=== PATIENT | female | born 1995 | race Caucasian/White ===

== ENCOUNTER 2018-03-16 18:30 | Emergency (ER) | payer OTHER, SELFPAY ==
[2018-03-16 18:32] VITALS: BP 131/96; PULSE 92; RESP 17; TEMP 36.5; O2SAT 100; BMI 28.0
--- NOTE | 2018-03-16 18:49 | ED.VISSUMM ---
- ER Visit Summary Date of Service: 03/16/18 Chief Complaint: Abdominal pain and flank pain History of Present Illness: The patient is a 22 F presenting for evaluation secondary to abdominal pain and flank pain. Patient reports that over the course last 5 days she has been dealing with right upper quadrant and right flank pain. She states it came on gradually, and now is a continuous sharp pain that is worse with movement palpation or taking a deep breath. Patient states that it has been associated with one episode of nonbloody nonbilious emesis today. She Nuys any dysuria frequency urgency. She denies any diarrhea. Last normal menstrual cycle ended 5 days ago. Patient denies any history of abdominal surgeries. She denies any vaginal discharge. She denies any prior similar episodes in the past. Physical Examination: Vital signs are within normal limits, patient is afebrile. General: Patient is well-nourished well-developed and in no acute distress. Head: Normocephalic, atraumatic Eyes: Pupils equal round and reactive bilaterally, extra occular motion intact bialterally ENT: Moist mucous membranes Neck: Supple, no lymphadenopathy, no JVD, no meningismus CVS: Heart regular rate and rhythm, no murmurs, rubs or gallops, radial pulses 2+ bilaterally Resp: Respirations nondistressed, lung sounds clear bilaterally Abdomen: Soft, right upper quadrant and right flank tenderness to palpation, nondistended, no palpable masses, normal bowel sounds Back: Nontender Extremities: Nontender, atraumatic, active full range of motion, no peripheral edema Skin: warm, no rashes, no petechia Neuro: Alert and oriented x 4, CN 2-12 intact, no lateralizing neurological defecits Psyc: Normal affect Test Results: Urinalysis shows 5-15 RBCs. CBC chemistry liver and hCG panels are unremarkable. Right upper quadrant ultrasound shows no hydronephrosis of the right kidney with a normal gallbladder. Rib series shows a right anterior rib fracture of the ninth rib Emergency Department Course and Treatment: Patient presented for evaluation secondary to flank pain and abdominal pain. Broad workup was obtained as the locale of the patient's pain length to a broad differential. Workup ended up showing the patient to have 9 rib fracture. Patient's pain was addressed in the emergency department with morphine Zofran Toradol and a lidocaine patch. She had minimal improvement from this. At this point I believe the patient to be appropriate for discharge. She will be sent home with light duty for work, and follow-up with primary care. Disposition: Discharge Impression: 1. Right anterior ninth rib fracture This note was generated with [employer] dictation software. It may contain incorrect words, spelling, and punctuation that were not noted in review of the chart prior to signing ED Disposition - Plan for ED Patient: Disposition: Home or Assisted Living Chief Complaint: Abd Pain Diagnosis: Rib fracture Instructions: ED Fx Rib Prescriptions: Oxycodone HCl/Acetaminophen [Percocet 5/325] 1 tab PO Q6H PRN PRN 5 Days #20 tab PRN Reason: Pain Lidocaine [Lidoderm] 1 ea TP DAILY #10 adh..patch Referrals: Miguel Sharif MD [STAFF PHYSICIAN] - As soon as possible
--- NOTE | 2018-03-16 18:51 | US_ITS ---
STUDY: ABDOMINAL ULTRASOUND - RIGHT UPPER QUADRANT REASON FOR VISIT: Female, 22 years old. Pain. Recent injury. TECHNIQUE: Ultrasound evaluation of the right upper quadrant was performed with real-time and static geronimo-scale imaging. TECHNICAL QUALITY: Adequate. COMPARISON: None. FINDINGS: Liver: The liver measures 18.4 cm. There is normal echogenicity of the liver. The bile ducts are within normal limits. There is hepatic color flow. The direction of portal flow is hepatopetal. There is no demonstrated mass lesion. Gallbladder: Normal distended gallbladder. The gallbladder wall measures 2 mm. There is a negative sonographic Zambrano's sign. There is no pericholecystic fluid. There are no gallstones. Common Bile Duct (C.B.D.): The common bile duct measures 3 mm. Pancreas: Normal size of the head, body and tail of the pancreas. There is normal echogenicity of the pancreas. There is no demonstrated pancreatic mass or cyst. Right Kidney: Normal size of the right kidney. The right kidney measures 9.7 cm. Normal renal cortex. There is no demonstrated renal mass or cyst. There is no right hydronephrosis. US/Gallbladder IMPRESSION: Normal right upper quadrant ultrasound examination. Electronically Signed: Alex Villa MD at 21:12 EST , Service support ,
[2018-03-16 19:27] LABS: ALB/GLOB Ratio 1.1 RATIO (0.9-2.4); AST(SGOT) 9 U/L (15-37); Alanine Aminotransfer ALT/SGPT 14 U/L (13-56); Albumin, Serum 3.7 g/dL (3.2-5.0); Alkaline Phosphatase 36 U/L (45-117); Anion Gap 9 (5-15); BUN 9 mg/dL (7-18); BUN/Creat Ratio 11.2 RATIO (10-20); Calcium,Total 8.5 mg/dL (8.5-10.1); Chloride 107 mmol/L (98-107); EST Glomerular Filtration Rate 96 mL/min (>60); Est Glom Filt Rate - Afr Amer 116 mL/min (>60); Estimated Creatinine Clearance 92.79 ml/min; Globulin 3.3 g/dL (2.2-4.2); Glucose 87 mg/dL (74-106); Lipase 78 U/L (73-393); Potassium 3.8 mmol/L (3.5-5.1); Sodium Level 142 mmol/L (136-145)
[2018-03-16 19:29] LABS: Absolute Lymphocyte Count 1.94 X10^3/ul (0.83-4.51); Absolute Neutrophil Count 5.8 X10^3/uL (2.0-7.7); Basophil# 0.02 X10^3/uL; Basophil% 0.2 % (0-1); Eosinophil# 0.12 X10^3/uL; Eosinophils% 1.4 % (0-5); Hematocrit 39.4 % (37-47); Hemoglobin 13.6 g/dl (12.0-15.0); Lymphocyte # 1.94 X10^3/ul (4.0); Lymphocyte % 21.9 % (19-41); Mean Corp Hgb Conc 34.5 g/gl (32-36); Mean Corpuscular Hgb 30.2 pg (27.0-32.0); Mean Corpuscular Volume 87.4 fL (81-99); Mean Platelet Vol. 9.5 fl (6.2-12.0); Monocyte# 1.02 X10^3/uL; Monocyte% 11.5 % (0-10); Neutrophil # 5.77 X10^3/uL (2.7-7.7); Platelet Count 331 K/mm3 (150-450); RBC Distribution Width CV 12.3 % (11.6-14.6); RBC Distribution Width SD 39.4 fl (35.1-43.9); Red Blood Count 4.51 M/mm3 (4.2-5.4); White Blood Count 8.9 K/mm3 (4.4-11.0)
[2018-03-16] MEDS: Ondansetron 4 MG/2 ML Vial IV (19:32)
[2018-03-16] MEDS: Morphine 2 MG/ML Syringe IV (19:32)
[2018-03-16] MEDS: Lidocaine 5% Patch 1 PATCH TOPICAL (19:33)
[2018-03-16 19:36] LABS: POSITIVE COUNT NO; POSITIVE DIFFERENTIAL NO; POSITIVE MORPHOLOGY NO
--- NOTE | 2018-03-16 19:40 | RAD_ITS ---
STUDY: X-RAY - UNILATERAL RIBS ( RIGHT ) WITH CHEST REASON FOR EXAM: Female, 22 years old. Right-sided rib pain. TECHNIQUE - RIBS: 3 view(s) of the ribs. TECHNIQUE - CHEST: Single frontal view of the chest. COMPARISON: None. FINDINGS - RIBS: Nondisplaced anterior ninth rib fracture. FINDINGS - CHEST: The lungs are clear and expanded. There is no demonstrated pleural abnormality. Normal size heart. Normal mediastinum and suzanne. Normal visualized pulmonary arteries. Normal visualized aortic arch and descending thoracic aorta. Normal visualized thoracic spine. Nondisplaced anterior right ninth rib fracture. There is no demonstrated abnormality of the visualized soft tissue structures of the upper abdomen. RAD/Ribs Uni Min 3V w/PA Chest IMPRESSION: RIBS: Nondisplaced anterior right ninth rib fracture. CHEST: Nondisplaced anterior right ninth rib fracture. No pneumothorax. Electronically Signed: Alex Villa MD at 21:11 EST , Service support ,
[2018-03-16 19:47] LABS: Color, Urine Brown (Yellow); Glucose, Dipstick Normal (Normal); Ketone-Dipstick 5 mg/dl (Negative); Leukocyte Esterase-Dipstick 25 /ul (Negative); Nitrite-Dipstick Negative (Negative); Occult Blood-Urine 250 /ul (Negative); Protein-Dipstick 100 mg/dl (Negative); Specific Gravity, Urine 1.025 (1.002-1.030); Urine Clarity Sl. Cloudy (Clear); Urine Urobilinogen 1 mg/dl (Normal)
[2018-03-16 19:52] LABS: Internal QC Validated? YES +Cl - CLEAR BKGD; Pregnancy, Urine Negative Negative
[2018-03-16 19:53] LABS: Urine Bilirubin Dipstick 1 mg/dL (Negative)
[2018-03-16 19:56] LABS: Squamous Epithelial Cells - UA 0-5 SEEN /hpf (5-10); White Blood Cells 0-5 SEEN /hpf (0-5)
[2018-03-16 19:57] LABS: Bacteria 1+ /hpf (None Seen); Mucous, Urine 1+ /hpf (<or=2+)
[2018-03-16 19:58] LABS: Red Blood Cells-Urine 5-10 SEEN /hpf (0-5)
[2018-03-16] MEDS: Ketorolac 15 MG/ML Vial IV (20:47)
[2018-03-16 20:49] VITALS: BP 119/72; PULSE 73; RESP 17; O2SAT 98
[2018-03-16] MEDS: oxyCODONE 5 MG Tablet 10 MG PO (21:57)
[2018-03-16 21:59] VITALS: BP 107/82; PULSE 77; RESP 18
[2018-03-16 22:02] VITALS: BP 107/82
--- OUTSIDE RECORDS SUMMARY | 2018-05-03 00:09 | XMS RPT_ITS ---
:1995 Author Organization [facility] Care Team Providers Name Role Phone Mr. REBEKA JOHNSON Attending Unavailable PCP, NONE Primary Care Unavailable Primay Care Physicia, No Primary Care Unavailable Peter Abraham Attending Unavailable PROBLEMS PROBLEMS DATE TYPE CONDITION / CODE ATTENDING STATUS SOURCE 03/18/2018 Unknown S22.39XA - Peter Abraham Active [facility] Fracture of one Community rib, unspecified Hospital side, initial Repository encounter for closed fracture / S22.39XA(ICD-10) 10/30/2017 Admitting Encounter for Mr. ALEX Active [facility] Diagnosis general adult CHRISTOPHER M System medical exam w Repository abnormal findings / Z00.01(ICD-10) 10/30/2017 Admitting Major depressive Mr. ALEX Active [facility] Diagnosis disorder, single CHRISTOPHER M System episode, moderate Repository / F32.1(ICD-10) 10/30/2017 Admitting Anxiety disorder, Mr. ALEX Active [facility] Diagnosis unspecified / CHRISTOPHER M System F41.9(ICD-10) Repository 10/30/2017 Admitting Abnormal weight Mr. ALEX Active [facility] Diagnosis loss / CHRISTOPHER M System R63.4(ICD-10) Repository PROCEDURES PROCEDURES No Procedure Records FoundRESULTS RESULTS EMERGENCY DEPARTMENT Observed: 03/17/2018 Status: F Source: [place] SUMMARY 12:35 AM [facility] REPOSITORY [facility] Medical Records Department [address] [place] [address] Emergency Department Summary 03/16/18 1849 MR#: [id number] Acct: [id number] Name: ALTA ALARCON Rep #: [id number] : 1995 22 From: Peter Abraham MD PCP: Care Physician, No Primary Status: DEP ER - ER Visit Summary Date of Service: 03/16/18 Chief Complaint: Abdominal pain and flank pain History of Present Illness: The patient is a 22 F presenting for evaluation secondary to abdominal pain and flank pain. Patient reports that over the course last 5 days she has been dealing with right upper quadrant and right flank pain. She states it came on gradually, and now is a continuous sharp pain that is worse with movement palpation or taking a deep breath. Patient states that it has been associated with one episode of nonbloody nonbilious emesis today. She Nuys any dysuria frequency urgency. She denies any diarrhea. Last normal menstrual cycle ended 5 days ago. Patient denies any history of abdominal surgeries. She denies any vaginal discharge. She denies any prior similar episodes in the past. Physical Examination: Vital signs are within normal limits, patient is afebrile. General: Patient is well-nourished well-developed and in no acute distress. Head: Normocephalic, atraumatic Eyes: Pupils equal round and reactive bilaterally, extra occular motion intact bialterally ENT: Moist mucous membranes Neck: Supple, no lymphadenopathy, no JVD, no meningismus CVS: Heart regular rate and rhythm, no murmurs, rubs or gallops, radial pulses 2+ bilaterally Resp: Respirations nondistressed, lung sounds clear bilaterally Abdomen: Soft, right upper quadrant and right flank tenderness to palpation, nondistended, no palpable masses, normal bowel sounds Back: Nontender Extremities: Nontender, atraumatic, active full range of motion, no peripheral edema Skin: warm, no rashes, no petechia Neuro: Alert and oriented x 4, CN 2-12 intact, no lateralizing neurological defecits Psyc: Normal affect Test Results: Urinalysis shows 5-15 RBCs. CBC chemistry liver and hCG panels are unremarkable. Right upper quadrant ultrasound shows no hydronephrosis of the right kidney with a normal gallbladder. Rib series shows a right anterior rib fracture of the ninth rib Emergency Department Course and Treatment: Patient presented for evaluation secondary to flank pain and abdominal pain. Broad workup was obtained as the locale of the patient's pain length to a broad differential. Workup ended up showing the patient to have 9 rib fracture. Patient's pain was addressed in the emergency department with morphine Zofran Toradol and a lidocaine patch. She had minimal improvement from this. At this point I believe the patient to be appropriate for discharge. She will be sent home with light duty for work, and follow-up with primary care. Disposition: Discharge Impression: 1. Right anterior ninth rib fracture This note was generated with [employer] dictation software. It may contain incorrect words, spelling, and punctuation that were not noted in review of the chart prior to signing ED Disposition - Plan for ED Patient: Disposition: Home or Assisted Living Chief Complaint: Abd Pain Diagnosis: Rib fracture Instructions: ED Fx Rib Prescriptions: Oxycodone HCl/Acetaminophen [Percocet 5/325] 1 tab PO Q6H PRN PRN 5 Days #20 tab PRN Reason: Pain Lidocaine [Lidoderm] 1 ea TP DAILY #10 adh..patch Referrals: Miguel Sharif MD [STAFF PHYSICIAN] - As soon as possible What to do if you have Problems For any increased pain, shortness of breath, bleeding, nausea or vomiting, chest pain, or any unexpected problems, contact your Primary Care Provider. Call [facility] ([phone]) or report to the closest Emergency Room. Call 911 if necessary. 03/17/18 0035 <Electronically signed by Peter Abraham MD> Date Peter Abraham MD Cosigner Signature (If Indicated): Date CC: No Primary Care Physician ,URINE Collected: 03/16/2018 Status: F Source: [place] 7:40 PM [facility] REPOSITORY TYPE CODE TESTS RESULT OUT OF REFERENCE UNITS RANGE LAB L400.8000 Negative Normal HCGUQUAL Negative Result Comment: Very dilute urine specimens, as indicated by a low specific gravity, may not contain practice representative levels of hCG. If is still suspected, a first morning urine specimen should be collected 48 hours later and tested. Performed By: #### L400.7600 #### [facility] [address] [place], [place], [address] URINALYSIS, COMPLETE Collected: 03/16/2018 Status: F Source: [place] 7:40 PM [facility] REPOSITORY Order Comment: COLOR OF URINE MAY AFFECT DIPSTICK RESULTS. How was Urine Obtained? CLEAN CATCH TYPE CODE TESTS RESULT OUT OF RANGE REFERENCE UNITS LAB L400.3000 Yellow COLOR Normal Brown LAB L400.3050 Clear Normal CLARITY Sl. Cloudy LAB L400.3200 Normal mg/dl Normal GLUCOSE, UR Normal LAB L400.3300 Negative mg/dL High BILIRUBIN URINE 1 Result Comment: COLOR OF URINE MAY AFFECT DIPSTICK RESULTS. LAB L400.3400 Negative mg/dl High KETONE UR 5 LAB L400.3465 1.002-1.030 Normal SP.GR. DIPSTX 1.025 LAB L400.3550 5.0 - 8.0 pH Normal UR 5.0 LAB L400.3600 Negative mg/dl High PROT DIPSTX 100 LAB L400.3700 Normal mg/dl High UROBILI 1 LAB L400.3750 Negative Normal NITRITE UR Negative LAB L400.3780 Negative /ul High OCCULT 250 BLOOD-UR LAB L400.3800 Negative /ul High LEUK ESTERASE 25 LAB L400.4050 0-5 /hpf Normal WBC 0-5 SEEN LAB L400.4100 0-5 /hpf Normal RBC-UA 5-10 SEEN LAB L400.4150 5-10 /hpf Normal SQUAM EPI 0-5 SEEN LAB L400.4300 None Seen /hpf Normal BACTERIA 1+ LAB L400.4350 <or=2+ /hpf Normal MUCUS, URINE 1+ Performed By: #### L400.0001 #### [facility] [address] [place], [address] COMPREHENSIVE METABOLIC Collected: 03/16/2018 Status: F Source: [place] 7:05 PM [facility] REPOSITORY TYPE CODE TESTS RESULT OUT OF RANGE REFERENCE UNITS LAB L501.0100 74-106 mg/dL Normal GLU 87 Result Comment: Please note revised GLUCOSE reference range effective 2017. LAB L501.1000 7-18 mg/dL Normal BUN 9 LAB L501.1100 0.55-1.02 mg/dL Normal CREAT,SERUM 0.80 Result Comment: The validity of the calculated GFR AND GFRAA in patients over 70 years has not been determined. Clinical correlation is essential. LAB L501.1110 >60 mL/min Normal EST GFR 96 Result Comment: Non- GFR Calc LAB L501.1115 >60 mL/min Normal EST GFR - AA 116 Result Comment: GFR Calc LAB L501.1255 ml/min Normal Estimated CRCL 92.79 LAB L501.1300 10-20 RATIO Normal BUN/CRE 11.2 LAB L501.1500 6.4-8. g/dL Normal 2 T PROT 7.0 LAB L501.1800 3.2-5. g/dL Normal 0 ALB 3.7 LAB L501.1950 2.2-4. g/dL Normal 2 GLOB 3.3 LAB L501.2000 0.9-2. RATIO Normal 4 A/G 1.1 LAB L501.2200 8.5-10 mg/dL Normal .1 CA 8.5 LAB L501.4100 15-37 U/L Low AST 9 LAB L501.4305 45-117 U/L Low ALK P 36 LAB L501.4405 13-56 U/L Normal ALT 14 LAB L501.4600 0.20-1 mg/dL Normal .00 T BILI 0.20 LAB L501.5300 136-14 mmol/L Normal 5 NA 142 LAB L501.5600 3.5-5. mmol/L Normal 1 K 3.8 LAB L501.5900 98-107 mmol/L Normal CL 107 LAB L501.6100 21.0-3 mmol/L Normal 2.0 CO2 26.0 LAB L501.6200 5-15 Normal GAP 9 Performed By: #### L500.4050, L501.2450 #### [facility] [address] [place], [address] LIPASE Collected: 03/16/2018 Status: F Source: [place] 7:05 PM [facility] REPOSITORY TYPE CODE TESTS RESULT OUT OF RANGE REFERENCE UNITS LAB L501.2450 73-393 U/L Normal LIPASE 78 Performed By: #### L500.4050, L501.2450 #### [facility] [address] [place], [place], [address] CBC W/DIFF, AUTOMATED Collected: 03/16/2018 Status: F Source: [place] 7:05 PM [facility] REPOSITORY TYPE CODE TESTS RESULT OUT OF RANGE REFERENCE UNITS LAB L100.1000 4.4-11.0 K/mm3 Normal WBC 8.9 LAB L100.1200 4.2-5.4 M/mm3 Normal RBC 4.51 LAB L100.1300 12.0-15.0 g/dl Normal HGB 13.6 LAB L100.1400 37-47 % Normal HCT 39.4 LAB L100.1500 81-99 fL Normal MCV 87.4 LAB L100.1600 27.0-32.0 pg Normal MCH 30.2 LAB L100.1700 32-36 g/gl Normal MCHC 34.5 LAB L100.1810 11.6-14.6 % Normal RDW CV 12.3 LAB L100.1820 35.1-43.9 fl Normal RDW SD 39.4 LAB L100.1900 150-450 K/mm3 Normal PLT 331 LAB L100.2000 6.2-12.0 fl Normal MPV 9.5 LAB L100.2100 47-70 % Normal NEUT% 65.0 LAB L100.2200 19-41 % Normal LY% 21.9 LAB L100.2300 0-10 % High MONO% 11.5 LAB L100.2400 0-5 % Normal EO% 1.4 LAB L100.2500 0-1 % Normal BASO% 0.2 LAB L100.2550 0.0-0.9 % Normal IM GRAN % 0.000 Result Comment: IG% - Immature Granulocytes (promyelocytes, myelocytes and metamyelocytes) > 1% indicates that a LEFT SHIFT is Present. LAB L100.2620 2.0-7.7 X10 3/uL Normal Absolute Neut 5.8 LAB L100.2720 0.83-4.51 X10 3/ul Normal Absolute Lymph 1.94 Performed By: #### L100.0100 #### [facility] [address] [place], [place], [address] RIBS UNI MIN 3V Observed: 03/16/2018 Status: F Source: [place] W/PA CHEST 6:52 PM [facility] REPOSITORY [facility] Imaging Services [address] [place] [address] Ribs Uni Min 3V w/PA Chest MR#: [id number] Acct: [id number] Name: ALTA ALARCON Rep #: [id number] : 1995 F 22 From: Alex Villa MD PCP: Care Physician, No Primary Status: REG ER Study: Ribs Uni Min 3V w/PA Chest Date of Exam: 03/16/18 Exam# [id number] Ordering Dr: Peter Abraham MD STUDY: X-RAY - UNILATERAL RIBS ( RIGHT ) WITH CHEST REASON FOR EXAM: Female, 22 years old. Right-sided rib pain. TECHNIQUE - RIBS: 3 view(s) of the ribs. TECHNIQUE - CHEST: Single frontal view of the chest. COMPARISON: None. FINDINGS - RIBS: Nondisplaced anterior ninth rib fracture. FINDINGS - CHEST: The lungs are clear and expanded. There is no demonstrated pleural abnormality. Normal size heart. Normal mediastinum and suzanne. Normal visualized pulmonary arteries. Normal visualized aortic arch and descending thoracic aorta. Normal visualized thoracic spine. Nondisplaced anterior right ninth rib fracture. There is no demonstrated abnormality of the visualized soft tissue structures of the upper abdomen. RAD/Ribs Uni Min 3V w/PA Chest IMPRESSION: RIBS: Nondisplaced anterior right ninth rib fracture. CHEST: Nondisplaced anterior right ninth rib fracture. No pneumothorax. Electronically Signed: Alex Villa MD at 21:11 EST , Service support , CC: No Primary Care Physician; Peter Abraham Band Tumbler: Signed GALLBLADDER Observed: 03/16/2018 Status: F Source: [place] 6:52 PM [facility] REPOSITORY [facility] Imaging Services [address] [place] [address] Gallbladder MR#: [id number] Acct: [id number] Name: ALTA ALARCON Rep #: [id number] : 1995 F 22 From: Alex Villa MD PCP: Care Physician, No Primary Status: REG ER Study: Gallbladder Date of Exam: 03/16/18 Exam# [id number] Ordering Dr: Peter Abraham MD STUDY: ABDOMINAL ULTRASOUND - RIGHT UPPER QUADRANT REASON FOR VISIT: Female, 22 years old. Pain. Recent injury. TECHNIQUE: Ultrasound evaluation of the right upper quadrant was performed with real-time and static geronimo-scale imaging. TECHNICAL QUALITY: Adequate. COMPARISON: None. FINDINGS: Liver: The liver measures 18.4 cm. There is normal echogenicity of the liver. The bile ducts are within normal limits. There is hepatic color flow. The direction of portal flow is hepatopetal. There is no demonstrated mass lesion. Gallbladder: Normal distended gallbladder. The gallbladder wall measures 2 mm. There is a negative sonographic Zambrano's sign. There is no pericholecystic fluid. There are no gallstones. Common Bile Duct (C.B.D.): The common bile duct measures 3 mm. Pancreas: Normal size of the head, body and tail of the pancreas. There is normal echogenicity of the pancreas. There is no demonstrated pancreatic mass or cyst. Right Kidney: Normal size of the right kidney. The right kidney measures 9.7 cm. Normal renal cortex. There is no demonstrated renal mass or cyst. There is no right hydronephrosis. US/Gallbladder IMPRESSION: Normal right upper quadrant ultrasound examination. Electronically Signed: Alex Villa MD at 21:12 EST , Service support , CC: No Primary Care Physician; Peter Abraham Band Tumbler: Signed CBC WITH DIFF Collected: 10/30/2017 Status: F Source: [facility] 10:28 AM SYSTEM REPOSITORY TYPE CODE TESTS RESULT OUT OF REFERENCE UNITS RANGE LAB DTYP DIFF TYPE AUTO DIFF LAB IMGP 0.0-1.0 % IMMATURE NEUT % 0.30 LAB NEUT 50-70 % NEUTROPHIL 51.70 LAB LYPH 20-40 % LYMPHOCYTE 32.90 LAB MONO 0-8 % MONOCYTE High 11.00 LAB EOS 0-3 % EOSINOPHIL High 3.50 LAB BASO 0-1 % BASOPHIL 0.60 LAB AIMG 0.0-0.1 K/UL AB IMMATURE NEUT 0.02 LAB AGRA 1.5-8.0 K/UL ABS NEUTROPHILS 3.26 LAB ALYM 1.2-3.2 K/UL ABS LYMPH 2.07 LAB MICHELLE 0-0.8 K/UL ABS MONOCYTE 0.69 LAB AEOS 0-0.45 K/UL ABS EOS 0.22 LAB ABAS 0.00-0.22 K/UL ABS BASO 0.04 LAB WBC 4.5-11.0 K/UL WBC COUNT 6.3 LAB RBC 4.0-4.9 M/UL RBC COUNT 4.58 LAB HGB 12.0-15.0 GM/DL HEMOGLOBIN 13.8 LAB HCT 36-44 % HEMATOCRIT 41.4 LAB MCV 80-100 FL MCV 90.4 LAB MCH 26-34 PG MCH 30.1 LAB MCHC 31-37 % MCHC 33.3 LAB RDWS 37.0-54.0 FL RDW-SD 39.1 LAB RDWC 11.7-15.0 % RDW-CV 11.8 LAB PLT 150-450 K/UL PLATELET 337 LAB MPV 7.0-12.6 CU MEAN PLT VOL 10.1 LAB NRBC 0 /100 WBC NRBC'S 0 LAB ANC ABS.NEUT.CALCULAT ED Result Comment: 3.26 Performed at [address] [address] Performed By: #### CBCD #### Main Laboratory [address] [address] COMPREHENSIVE METABOLIC Collected: 10/30/2017 Status: F Source: [facility] 10:28 AM SYSTEM REPOSITORY TYPE CODE TESTS RESULT OUT OF REFERENCE UNITS RANGE LAB CA 8.5-10.4 MG/DL TOTAL CALCIUM 8.8 LAB AST 5-40 U/L AST 13 LAB ALKP 35-125 U/L Low ALK PHOSPHATASE 34 LAB TBIL 0.1-1.2 MG/DL BILIRUBIN,TOTAL 0.4 LAB TP 5.9-7.9 G/DL PROTEIN, TOTAL 7.2 LAB ALB 3.5-5.0 GM/DL ALBUMIN 4.3 LAB GLOB 1.9-3.7 G/DL GLOBULIN 2.9 LAB AGR 1.5-3.0 RATIO A/G RATIO 1.5 LAB NA 133-145 MMOL/L SODIUM 139 LAB K 3.4-5.1 MMOL/L POTASSIUM 4.3 LAB CL 97-107 MMOL/L CHLORIDE 104 LAB CO2 24-31 MMOL/L CARBON DIOXIDE 25 LAB ANGP 0-19 MMOL/L ANION GAP 10 LAB BUN 8-25 MG/DL UREA NITROGEN 10 LAB CRET 0.4-1.6 MG/DL CREATININE 0.7 LAB BUCR 8-21 RATIO BUN/CREAT. RATIO 14.3 LAB GLU 65-99 MG/DL GLUCOSE 94 LAB ALT 5-40 U/L ALT 7 LAB EGFR ESTIMATED GFR Result Comment: 113 GFR ml/min/1.73m2 Stage ----- 90 1 60-89 2 30-59 3 15-29 4 <15 5 For -Americans, multiply EGFR result by 1.210 Calculation not validated for patients under 18 years of age. Performed at [place] [id number] Performed By: #### CPMP #### Main Laboratory [place] [id number] TSH Collected: 10/30/2017 Status: F Source: [facility] 10:28 AM SYSTEM REPOSITORY TYPE CODE TESTS RESULT OUT OF RANGE REFERENCE UNITS LAB TSH 0.27-4.20 TSH Result Comment: 0.89 THIS TSH ASSAY HAS A FUNCTIONAL SENSITIVITY OF 0.01 MIU/L. THIS MEETS REQUIREMENTS OF A 3RD GENERATION HIGH SENSITIVE TSH ASSAY. Performed at [address] [address] Performed By: #### TSHR #### Main Laboratory [place] [id number] ALLERGIES ALLERGIES DATE TYPE / CODE NAME / CODE REACTION SEVERITY SOURCE 03/16/2018 [facility]F00 [facility] [address](SNOMED [id number](RXNOR Repository CT) M) ENCOUNTERS ENCOUNTERS ADMIT/DISCHARGE ACCOUNT NUMBER ADMITTING ENCOUNTER LOCATION SOURCE CLASS 03/16/2018/03/16/20 [id number] Emergency [place] Lauren 18 [facility] ding:ED Repository 10/30/2017 [id number] Ambulatory UNKNOWN [facility] Repository PAYERS PAYERS ENCOUNTER GUARANTOR PAYER SUBSCRIBER SOURCE 03/16/2018 ALTA E [id number] Primary [place] BECKTZ Insurance:SELF INS CARTERDOB: [facility] [place], [facility] [place] [id number] Hospital [address]Odj: 330) BRUSHPolicy Number: Repository [phone] () [id number] Date:2018-03-16 03/16/2018 Secondary NOT GIVENUNK Lauren Insurance:SELF PAY [facility] Number: Effective Repository Date:2018-03-16 10/30/2017 ALTA E Primary [facility] CARTERDOB: Insurance:ANTHE[employer] CARTERDOB: System [id number] y Number: [id number] Repository [facility] [id number] Date:Plan [address] [id number]: ([phone]) Name:[address] [phone] () [id number], [place] [address]Fwp: [phone] [id number]: [phone] ()
== END 2018-03-16 22:02 | disposition home or self-care (01) ==
PROVIDERS: Emergency Provider Emergency Medicine
DX: S22.31XA Fracture of one rib, right side, initial encounter for closed fracture (principal); X58.XXXA Exposure to other specified factors, initial encounter; Y93.9 Activity, unspecified; Y92.89 Other specified places as the place of occurrence of the external cause; Y99.9 Unspecified external cause status; Z72.0 Tobacco use
CPT/HCPCS: 71101; 76705; 80053; 81001; 81025; 83690; 85025; 96374; 96375; 99284; J7030; J7040; A4216; J2405